=== PATIENT | male | born 1965 | race Caucasian/White ===

== ENCOUNTER 2022-10-25 17:53 | Emergency (ER) | payer OTHER ==
[~2022-10-25] VITALS: Ht 167.6 cm; Wt 63.5 kg
[2022-10-25 18:07] VITALS: BP 139/75
[2022-10-25] MEDS ORDERED: HYDR453.3 TP (18:13)
[2022-10-25] MEDS ORDERED: PRED50TA PO (18:13)
== END 2022-10-25 18:33 | disposition home or self-care (01) ==
LOC: ER 18:02
DX: L50.9 Urticaria, unspecified (principal); E03.9 Hypothyroidism, unspecified; Z79.899 Other long term (current) drug therapy; Z60.2 Problems related to living alone